=== PATIENT | male | born 1965 | race Caucasian/White ===

== ENCOUNTER 2019-08-08 07:08 | Day surgery (SDC) | payer BC ==
[2019-08-05 14:02] VITALS: BMI 38.5
[2019-08-08 08:47] VITALS: TEMP 97.7
[2019-08-08 10:16] VITALS: BP 129/62; PULSE 60
--- NOTE | 2019-08-09 17:39 | PATH ---
Surgical Pathology Report Patient Name: SLIME GARCIA [facility]. Rec. #: [id number] /Age/Gender: 1965 (Age: 54) / M Account: [id number] Location: U-ENDOSCOPY Taken: 08/08/2019 Received: 08/08/2019 Reported: 08/09/2019 Physicians: Raven Aguilar M.D. Specimen(s) Received A: DUODENUM, SECOND PORTION AND DUODENAL BULB B: ANTRUM AND BODY C: GE JUNCTION D: MID ESOPHAGUS E: RECTAL POLYP Clinical History Dysphagia, colon screening Postoperative diagnosis: GERD, rectal polyp Final Diagnosis A. DUODENUM, SECOND PORTION AND DUODENAL BULB, BIOPSY: DUODENAL MUCOSA WITHOUT SIGNIFICANT PATHOLOGIC FINDINGS. B. STOMACH, BODY AND ANTRUM, BIOPSY: GASTRIC ANTRAL AND BODY MUCOSA WITH MILD CHRONIC GASTRITIS. IMMUNOHISTOCHEMICAL STAIN FOR H. PYLORI IS NEGATIVE. C. GE JUNCTION, BIOPSY: SQUAMOUS MUCOSA WITH CHANGES OF MODERATE TO SEVERE REFLUX TYPE ESOPHAGITIS. DEATACHED FRAGMENTS OF COLUMNAR EPITHELIUM WITHOUT SIGNIFICANT PATHOLOGIC FINDINGS. NO INTESTINAL METAPLASIA OR DYSPLASIA IDENTIFIED. D. MID ESOPHAGUS, BIOPSY: SQUAMOUS MUCOSA WITH CHANGES CONSISTENT WITH MILD TO MODERATE REFLUX TYPE ESOPHAGITIS. NO HISTOLOGIC EVIDENCE OF EOSINOPHILIC ESOPHAGITIS IDENTIFIED. E. RECTAL POLYP, BIOPSY: HYPERPLASTIC POLYP. Electronically Signed Tammy Bahena M.D. Gross Description A. Received in formalin, labeled "biopsy second portion of duodenum and duodenal bulb" are 3 denton, irregular portions of soft tissue averaging 0.4 cm. in greatest dimension. The specimens are submitted in toto in one cassette. B. Received in formalin, labeled "biopsy body and antrum" are 4 denton, irregular portions of soft tissue ranging from 0.4-0.6 cm. in greatest dimension. The specimens are submitted in toto in one cassette. C. Received in formalin, labeled "biopsy GE junction" are 3 denton, irregular portions of soft tissue ranging from 0.1-0.4 cm. in greatest dimension. The specimens are submitted in toto in one cassette. D. Received in formalin, labeled "biopsy mid esophagus" are 2 denton, irregular portions of soft tissue measuring 0.4 and 0.5 cm. in greatest dimension. The specimens are submitted in toto in one cassette. E. Received in formalin, labeled "biopsy rectal polyp" are 2 denton, irregular portions of soft tissue measuring 0.2 and 0.3 cm. in greatest dimension. The specimens are submitted in toto in one cassette. 08/08/2019 saudi08/08/2019
== END 2019-08-08 09:56 | disposition home or self-care (01) ==
LOC: JASU-ENDO 07:08
PROVIDERS: ATTEND Internal Medicine Gastroenterology
PROC: 0DB38ZX Excision of Lower Esophagus, Via Natural or Artificial Opening Endoscopic, Diagnostic (ICD-10-PCS; 2019-08-08)
PROC: 0DB68ZX Excision of Stomach, Via Natural or Artificial Opening Endoscopic, Diagnostic (ICD-10-PCS; 2019-08-08)
PROC: 0DB28ZX Excision of Middle Esophagus, Via Natural or Artificial Opening Endoscopic, Diagnostic (ICD-10-PCS; 2019-08-08)
PROC: 0DBP8ZX Excision of Rectum, Via Natural or Artificial Opening Endoscopic, Diagnostic (ICD-10-PCS; principal; 2019-08-08 08:00)
DX: Z12.11 Encounter for screening for malignant neoplasm of colon (principal); K62.1 Rectal polyp; K64.8 Other hemorrhoids; K21.9 Gastro-esophageal reflux disease without esophagitis; K44.9 Diaphragmatic hernia without obstruction or gangrene; K29.50 Unspecified chronic gastritis without bleeding
CPT/HCPCS: 88305-TC; 88342-TC

== ENCOUNTER 2022-04-08 08:54 | Emergency (ER) | payer BC ==
[2022-04-08 09:04] VITALS: BMI 29.5
[2022-04-08] MEDS ORDERED: BEBTELOVIMAB (EUA) 175 MG/2 ML VIAL IVPUSH ONE (10:12)
[2022-04-08] MEDS ORDERED: ACETAMINOPHEN INJECTION 100 ML IVPB ONE (11:19)
[2022-04-08 11:27] VITALS: RESP 20
[2022-04-08] MEDS ORDERED: ACETAMINOPHEN 1000 MG/100 ML BAG IVPB ONE (11:38)
[2022-04-08] MEDS ORDERED: SODIUM CHLORIDE 0.9% 500 ML INFUS.BAG IV ONE (11:38)
[2022-04-08 12:16] VITALS: BP 142/79; PULSE 89; TEMP 98.4
== END 2022-04-08 13:22 | disposition home or self-care (01) ==
LOC: JER 08:54
PROC: 3E0333Z Introduction of Anti-inflammatory into Peripheral Vein, Percutaneous Approach (ICD-10-PCS; principal; 2022-04-08)
PROC: 3E03329 Introduction of Other Anti-infective into Peripheral Vein, Percutaneous Approach (ICD-10-PCS; 2022-04-08)
DX: U07.1 COVID-19 (principal)
CPT/HCPCS: 96374; 96375; 99284-25; M0222; Q0222